=== PATIENT | male | born 1965 | race Two or more races ===

== ENCOUNTER 2018-04-19 05:38 | Emergency (ER) | payer OTHER ==
[~2018-04-19] VITALS: Ht 165.1 cm; Wt 63.5 kg
[~2018-04-19 05:38] MED LIST: COMBIVIR; LEXIVA700 MG PO; NORVIR100 MG PO
[2018-04-19] MEDS ORDERED: JULUCA 50-25 M1 EACH (05:48)
[2018-04-19] MEDS ORDERED: ZANTAC150 MG PO (14:35)
[2018-04-19] MEDS ORDERED: INTESTINEX680 M1 PO (14:35)
== END 2018-04-19 14:52 | disposition home or self-care (01) ==
LOC: ER 05:38
DX: K29.70 Gastritis, unspecified, without bleeding (principal); R10.11 Right upper quadrant pain